=== PATIENT | female | born 1995 ===

== ENCOUNTER 2019-11-28 13:15 | Inpatient (IN) | payer MEDICAID, SELFPAY ==
[2019-11-28 13:18] VITALS: BMI 26.6
[2019-11-28 13:29] VITALS: BP 146/93; PULSE 76; RESP 18; TEMP 35.3; O2SAT 98
[2019-11-28 13:56] LABS: HCG Qualitative Urine. Negative (Negative)
[2019-11-28 14:00] LABS: Basophils % 0.5 %; Eosinophils # 0.1 10^3/uL (0.0-0.8); Eosinophils % 0.6 %; Hematocrit 38.9 % (37.0-47.0); Hemoglobin 12.6 g/dL (11.5-15.3); Lymphocytes # 1.5 10^3/uL (0.8-4.8); Lymphocytes % 19.7 %; Mean Corpuscular HGB Conc 32.4 g/dL (30.0-36.0); Mean Corpuscular Hemoglobin 28.5 pg (28.0-34.0); Mean Platelet Volume 9.5 fL (7.4-10.4); Monocytes # 0.7 10^3/uL (0.2-0.9); Monocytes % 9.6 %; Neutrophils # 5.4 10^3/uL (1.8-7.7); Neutrophils % 69.3 %; Nucleated Red Blood Cells % 0 %; Platelet Count 293 10^3/cmm (130-400); Red Blood Count 4.42 10^6/uL (4.1-5.3); Red Cell Distribution Width 13.1 % (12.1-15.1); White Blood Count 7.7 10^3/uL (4.0-10.0)
[2019-11-28 14:03] LABS: Blood Urine 3+ (Negative); Glucose Urine UA Norm (Normal); Ketones Urine Negative (Negative); Protein Urine Trace (Negative); Specific Gravity, Urine 1.025 (1.005-1.030); Urine Appearance Clear (CLEAR); Urine Color Yellow (Yellow); pH Urine 5 (5-7)
[2019-11-28 14:04] LABS: Add Urine Culture? Yes; Add Urine Microscopic? YES; Amphetamines Screen Urine Positive (Negative); Bacteria Urine 2+; Barbiturates Screen Urine Negative (Negative); Benzodiazepines Screen Urine Positive (Negative); Bilirubin Urine Neg (NEGATIVE); Cocaine Screen Urine Negative (Negative); Leukocyte Esterase Urine Negative (Negative); Mucus Urine 1+; Nitrate Urine Negative (Negative); Opiate Screen Urine Negative (Negative); PCP Screen Urine Negative (Negative); Squamous Epithelial Cell Urine 0-4 (0-5); THC Screen Urine Positive (Negative); Transitional Epi Cells Urine RARE /hpf; Urobilinogen Urine Norm (Negative)
[2019-11-28 14:27] LABS: Alanine Aminotransferase 49 U/L (0-33); Alkaline Phosphatase 74 IU/L (35-105); Anion Gap 19.4 (5-19); Aspartate Amino Transferase 68 U/L (0-32); Blood Urea Nitrogen 15 mg/dL (6-20); Calcium 9.7 mg/dL (8.5-10.5); Carbon Dioxide 24 mmol/L (22-29); Chloride 103 mmol/L (98-107); Creatinine Clr Calc Pharmacy 94.5523; Globulin 2.6 g/dL (1.3-4.6); Glomerular Filtration Rate 75.7 mL/min (90-130); Glucose 116 mg/dL (65-115); Osmolality Calculated 293 mOsm/kg (285-295); Potassium 3.4 mmol/L (3.5-5.1); Sodium 143 mmol/L (136-145); Total Bilirubin 0.8 mg/dL (0.15-1.2); Total Protein 7.6 g/dL (6.6-8.7)
[2019-11-28 14:30] VITALS: BP 138/89; PULSE 81; RESP 15; O2SAT 96
[2019-11-28 14:32] LABS: Acetaminophen < 5.0 ug/mL (10-30); Alcohol Level < 10 mg/dL (0-10); Salicylate < 0.3 mg/dL (3-10)
[2019-11-28 16:07] VITALS: BP 151/100; PULSE 90; RESP 16; O2SAT 98
--- NOTE | 2019-11-28 17:40 | ED_ITS ---
HPI - Psych General: Chief Complaint: Psychiatric Symptoms Stated Complaint: OVERDOSE Time Seen by Provider: 11/28/19 13:18 Source: EMS and other (referring doctor) Mode of arrival: EMS Limitations: other (sedated) History of Present Illness: HPI Narrative: The patient is sedated and unable to give a history. All of the history is obtained from the referring doctor. The patient was transferred to this facility from [facility]. Apparently she was dropped off at the emergency department by her boyfriend who also dropped off all her belongings. He subsequently left her in the emergency department. According to the physician the patient was very restless, and acting like she was intoxicated. She needed 3 mg of lorazepam and some Thorazine to get her to be coming off. Her urine drug screen showed it was positive for methamphetamines, benzodiazepine, and marijuana. They felt she the patient needed a safe place for evaluation and management which was above the capacity. She was therefore transferred here for further evaluation. Review of Systems General: Reports: Other (Unobtainable due to sedation) Physical Exam Const: COMMON NORMALS: no acute distress, average body habitus, no limitations, healthy appearing and well nourished HENMT: COMMON NORMALS: normocephalic, atraumatic and moist oral mucous membranes HEAD & SCALP: normocephalic and atraumatic Eye: COMMON NORMALS: Equal, round and reactive pupils present, EOMs intact bilaterally, conjunctivae normal and no scleral icterus CONJUNCTIVA: Yes conjunctivae normal PUPIL: Yes Equal, round and reactive pupils present Neck/C-Spine: COMMON NORMALS: full ROM, supple, no meningeal signs, no JVD and No carotid bruits Chest: COMMONS NORMALS: normal inspection of the chest and normal palpation of entire chest wall Resp: COMMON NORMALS: normal respiratory effort, No retractions, No use of accessory muscles, clear to auscultation bilaterally and percussion normal AUSCULTATION: clear to auscultation bilaterally PERCUSSION: percussion normal Cardio: COMMON NORMALS: no JVD, regular rate, regular rhythm, S1 normal heart sound present, S2 normal heart sound present, No gallops present (Cardio), No clicks present (Cardio), No murmurs present (Cardio), No rub (Cardio) and Peripheral pulses 2+ throughout RATE: regular rate RHYTHM: regular rhythm HEART SOUNDS: S1 normal heart sound present and S2 normal heart sound present PERIPHERAL PULSES: Peripheral pulses 2+ throughout GI: COMMON NORMALS: Normal to inspection, nondistended, normoactive bowel sounds present, Soft to palpation, non-tender, No hepatosplenomegaly present, no masses and no bruits PALPATION: Yes Soft to palpation and Yes No hepatosplenomegaly present : COMMON NORMALS: Yes no CVA tenderness BLADDER/KIDNEY EXAM: Yes no CVA tenderness Back/Pelvis: COMMON NORMALS: no CVA tenderness Extremity: COMMON NORMALS: normal to inspection, full ROM, capillary refill normal, no calf tenderness and no pedal edema Neuro: SENSORIUM/ORIENTATION: Yes other (sedated) MENINGEAL SIGNS: Yes no meningeal signs Skin: COMMON NORMALS: no rashes or lesions noted, no wounds, turgor normal, no jaundice, no petechiae and no mottling GENERAL SKIN EXAM: no rashes or lesions noted and turgor normal MDM - Psych MDM Narrative: Medical decision making narrative: Unfortunate 24-year-old female patient who was dropped off by her boyfriend at a hospital in [facility]. He abandoned her there. The patient was psychotic and required 3 mg of Ativan and some Thorazine to sedate her. The patient has very poor social support from what I can gather, her mother was not interested in talking to us when we called her today. I think this patient is at significant risk of harm and I do not believe it is safe for her to be discharged home. She is therefore going to be admitted to the neuropsychiatric unit and hopefully licensed master social worker can assist her with some services when she is stable enough to be discharged home. Medical Records: Attestation: I reviewed the patient's medical records. Lab Data: Attestation: I reviewed the patient's lab results. Labs: Lab Results 11/28/19 11/28/19 11/28/19 Range/Units 13:25 13:25 13:25 WBC (4.0-10.0) 10^3/ uL RBC (4.1-5.3) 10^6/u L Hgb (11.5-15.3) g/dL Hct (37.0-47.0) % MCV (81-99) fL MCH (28.0-34.0) pg MCHC (30.0-36.0) g/dL RDW (12.1-15.1) % Plt Count (130-400) 10^3/c mm MPV (7.4-10.4) fL Neut % (Auto) % Lymph % (Auto) % [place] % (Auto) % Eos % (Auto) % Baso % (Auto) % Neut # (Auto) (1.8-7.7) 10^3/u L Lymph # (Auto) (0.8-4.8) 10^3/u L [place] # (Auto) (0.2-0.9) 10^3/u L Eos # (Auto) (0.0-0.8) 10^3/u L Baso # (Auto) (0.0-0.1) 10^3/u L Nucleated RBC % (a uto) % Nucleated RBCs # /100WBC Sodium (136-145) mmol/L Potassium (3.5-5.1) mmol/L Chloride (98-107) mmol/L Carbon Dioxide (22-29) mmol/L Anion Gap (5-19) BUN (6-20) mg/dL Creatinine (0.5-0.9) mg/dL GFR Calculation (90-130) mL/min Glucose (65-115) mg/dL Calculated Osmolal ity (285-295) mOsm/k g Calcium (8.5-10.5) mg/dL Total Bilirubin (0.15-1.2) mg/dL AST (0-32) U/L ALT (0-33) U/L Alkaline Phosphata se (35-105) IU/L Total Protein (6.6-8.7) g/dL Albumin (3.5-5.2) g/dL Globulin (1.3-4.6) g/dL HCG, Qual Negative (Negative) Urine Color Yellow (Yellow) Urine Appearance Clear (CLEAR) Urine pH 5 (5-7) Ur Specific Gravit y 1.025 (1.005-1.030) Urine Protein Trace (Negative) Urine Glucose (UA) Norm (Normal) Urine Ketones Negative (Negative) Urine Blood 3+ H (Negative) Urine Nitrate Negative (Negative) Urine Bilirubin Neg (NEGATIVE) Urine Urobilinogen Norm (Negative) mg/dL Ur Leukocyte Aleyda ase Negative (Negative) Urine RBC 10-15 H (0-2) /hpf Urine WBC None (0-5) /hpf Ur Squamous Epith Cells 0-4 H (0-5) Ur Transition Epit h Cell Rare /hpf Urine Bacteria 2+ H (NONE) Urine Mucus 1+ Salicylates (3-10) mg/dL Urine Opiates Scre en Negative (Negative) ng/mL Acetaminophen (10-30) ug/mL Ur Barbiturates Sc reen Negative (Negative) ng/mL Ur Phencyclidine S crn Negative (Negative) ng/mL Ur Amphetamines Sc reen Positive H (Negative) ng/mL U Benzodiazepines Scrn Positive H (Negative) ng/mL Urine Cocaine Scre en Negative (Negative) ng/mL U Marijuana (THC) Screen Positive H (Negative) ng/mL Ethyl Alcohol (0-10) mg/dL 11/28/19 11/28/19 Range/Units 13:50 13:50 WBC 7.7 (4.0-10.0) 10^3/ uL RBC 4.42 (4.1-5.3) 10^6/u L Hgb 12.6 (11.5-15.3) g/dL Hct 38.9 (37.0-47.0) % MCV 88.0 (81-99) fL MCH 28.5 (28.0-34.0) pg MCHC 32.4 (30.0-36.0) g/dL RDW 13.1 (12.1-15.1) % Plt Count 293 (130-400) 10^3/c mm MPV 9.5 (7.4-10.4) fL Neut % (Auto) 69.3 % Lymph % (Auto) 19.7 % [place] % (Auto) 9.6 % Eos % (Auto) 0.6 % Baso % (Auto) 0.5 % Neut # (Auto) 5.4 (1.8-7.7) 10^3/u L Lymph # (Auto) 1.5 (0.8-4.8) 10^3/u L [place] # (Auto) 0.7 (0.2-0.9) 10^3/u L Eos # (Auto) 0.1 (0.0-0.8) 10^3/u L Baso # (Auto) 0.0 (0.0-0.1) 10^3/u L Nucleated RBC % (a uto) 0 % Nucleated RBCs # 0.0 /100WBC Sodium 143 (136-145) mmol/L Potassium 3.4 L (3.5-5.1) mmol/L Chloride 103 (98-107) mmol/L Carbon Dioxide 24 (22-29) mmol/L Anion Gap 19.4 H (5-19) BUN 15 (6-20) mg/dL Creatinine 0.9 (0.5-0.9) mg/dL GFR Calculation 75.7 L (90-130) mL/min Glucose 116 H (65-115) mg/dL Calculated Osmolal ity 293 (285-295) mOsm/k g Calcium 9.7 (8.5-10.5) mg/dL Total Bilirubin 0.8 (0.15-1.2) mg/dL AST 68 H (0-32) U/L ALT 49 H (0-33) U/L Alkaline Phosphata se 74 (35-105) IU/L Total Protein 7.6 (6.6-8.7) g/dL Albumin 5.0 (3.5-5.2) g/dL Globulin 2.6 (1.3-4.6) g/dL HCG, Qual (Negative) Urine Color (Yellow) Urine Appearance (CLEAR) Urine pH (5-7) Ur Specific Gravit y (1.005-1.030) Urine Protein (Negative) Urine Glucose (UA) (Normal) Urine Ketones (Negative) Urine Blood (Negative) Urine Nitrate (Negative) Urine Bilirubin (NEGATIVE) Urine Urobilinogen (Negative) mg/dL Ur Leukocyte Aleyda ase (Negative) Urine RBC (0-2) /hpf Urine WBC (0-5) /hpf Ur Squamous Epith Cells (0-5) Ur Transition Epit h Cell /hpf Urine Bacteria (NONE) Urine Mucus Salicylates < 0.3 L (3-10) mg/dL Urine Opiates Scre en (Negative) ng/mL Acetaminophen < 5.0 L (10-30) ug/mL Ur Barbiturates Sc reen (Negative) ng/mL Ur Phencyclidine S crn (Negative) ng/mL Ur Amphetamines Sc reen (Negative) ng/mL U Benzodiazepines Scrn (Negative) ng/mL Urine Cocaine Scre en (Negative) ng/mL U Marijuana (THC) Screen (Negative) ng/mL Ethyl Alcohol < 10 (0-10) mg/dL Discharge Plan Discharge Patient Disposition: Admitted As Inpatient Admit Provider: Inderjit Jansen Clinical Impression: Acute psychosis, Drug-induced psychotic disorder Condition: Stable Coding Level of Care Code ED Childcare Aide for Chg Fwd Exam Comprehensive
[2019-11-28 18:33] VITALS: BP 119/83; PULSE 73; RESP 16; O2SAT 99
[2019-11-28] MEDS: LORazepam 2 mg/mL INJ 1 mL 1 MG IVP (19:05)
[2019-11-28 20:27] VITALS: PULSE 102; O2SAT 99
[2019-11-28] MEDS: hyDROXYzine 25 mg Capsule 50 MG PO (21:24)
[2019-11-28 22:00] VITALS: BP 97/64; PULSE 111; RESP 19; TEMP 36.5; O2SAT 100
[2019-11-29] MEDS: acetaminophen 325 mg Tablet 650 MG PO (03:13)
[2019-11-29 06:00] VITALS: BP 138/90; PULSE 82; RESP 16; TEMP 36.6; O2SAT 98
[2019-11-29] MEDS: hyDROXYzine 25 mg Capsule 50 MG PO ×2 (12:12→20:17)
--- NOTE | 2019-11-29 12:13 | PC.NURSE ---
PRN vistaril -50 mg given for pt anxiety, pt has been pacing unit, tearful, needs to be redirected. will continue to monitor.
[2019-11-29] MEDS: nicotine 2 mg Gum BUCCAL ×2 (12:16→15:39)
[2019-11-29 14:00] VITALS: BP 136/90; PULSE 85; RESP 16; TEMP 37.1; O2SAT 98
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
[2019-11-29] MEDS: quetiapine 100 mg Tablet PO (20:17)
[2019-11-29] MEDS: gabapentin 300 mg Capsule PO (20:17)
[2019-11-29] MEDS: OLANZapine 5 mg ODT PO (20:17)
[2019-11-29] MEDS: trazodone 50 mg Tablet PO (20:17)
[2019-11-29 21:57] VITALS: PULSE 91; RESP 18; TEMP 36.7; O2SAT 98
--- NOTE | 2019-11-29 21:57 | PC.NURSE ---
Patient refused to let staff get blood pressure
[2019-11-30 06:00] VITALS: RESP 17
[2019-11-30] MEDS: gabapentin 300 mg Capsule PO ×2 (07:36→14:08)
[2019-11-30 12:36] VITALS: PULSE 88; RESP 18; TEMP 37.2; O2SAT 100
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
[2019-11-30 12:50] VITALS: PULSE 88; RESP 18; TEMP 37.2; O2SAT 100
[2019-11-30] MEDS: nicotine 2 mg Gum BUCCAL (14:39)
== END 2019-11-30 15:07 | disposition home or self-care (01) | DRG 897 ==
LOC: ER 15:32 → NP 19:01
PROVIDERS: Family Medicine
DX: F15.959 Other stimulant use, unspecified with stimulant-induced psychotic disorder, unspecified (principal); F15.90 Other stimulant use, unspecified, uncomplicated; F12.90 Cannabis use, unspecified, uncomplicated
CPT/HCPCS: 12345; 36415; 80053; 80306; 80307; 81001; 81025; 85025; 87086; 99284; J2060